=== PATIENT | female | born 1985 | race Two or more races ===

== ENCOUNTER 2020-11-19 13:39 | Outpatient (CLI) | payer OTHER | END 2020-11-19 15:35 | disposition home or self-care (01) | LOC: PRENATAL 13:39 | PROVIDERS: ATTEND Obstetrics & Gynecology Maternal & Fetal Medicine | DX: O35.0XX1 Maternal care for (suspected) central nervous system malformation in fetus, fetus 1 (principal); O35.3XX1 Maternal care for (suspected) damage to fetus from viral disease in mother, fetus 1; O98.512 Other viral diseases complicating pregnancy, second trimester; O09.512 Supervision of elderly primigravida, second trimester; Z36.89 Encounter for other specified antenatal screening; Z3A.24 24 weeks gestation of pregnancy ==

== ENCOUNTER 2022-03-09 09:50 | Emergency (ER) | payer OTHER ==
[~2022-03-09] VITALS: Ht 160 cm; Wt 72.6 kg
[2022-03-09] MEDS ORDERED: CAMILA0.35 MG (10:29)
== END 2022-03-09 11:38 | disposition home or self-care (01) ==
LOC: ER 09:50
DX: M94.0 Chondrocostal junction syndrome [Tietze] (principal)

== ENCOUNTER 2022-12-10 14:07 | Emergency (ER) | payer OTHER ==
[~2022-12-10] VITALS: Ht 160 cm; Wt 79.4 kg
[~2022-12-10 14:07] MED LIST: CAMILA0.35 MG
== END 2022-12-10 17:59 | disposition home or self-care (01) ==
LOC: ER 14:07
DX: G24.3 Spasmodic torticollis (principal)

== ENCOUNTER 2022-12-21 09:11 | Emergency (ER) | payer OTHER ==
[~2022-12-21] VITALS: Ht 160 cm; Wt 77.1 kg
== END 2022-12-21 12:30 | disposition home or self-care (01) ==
LOC: ER 09:11
DX: M43.6 Torticollis (principal)

== ENCOUNTER 2023-04-27 11:11 | Emergency (ER) | payer OTHER ==
[~2023-04-27] VITALS: Ht 160 cm; Wt 81.6 kg
[2023-04-27] MEDS ORDERED: GUAIFENESIN 200 MG/10 ML BLIST.PACK PO STA (12:26)
[2023-04-27] MEDS ORDERED: ACETAMINOPHEN 500 MG GEL..CAP PO STA (12:26)
[2023-04-27] MEDS ORDERED: DEXAMETHASONE SODIUM PHOSPHATE 4 MG/ML VIAL IM STA (12:26)
[2023-04-27 13:30] LABS: HEMOGLOBIN 13.4 g/dL (12.0-15.00); MEAN CELL VOLUME 87.4 fL (80.00-100.00); MEAN CORPUSCULAR HEMOGLOBIN 29.9 pg (27.00-32.0); MEAN CORPUSCULAR HGB CONC 34.2 g/dl (32.0-36.0); PLATELET COUNT 289 K/uL (150-450); RED BLOOD COUNT 4.47 M/uL (4.00-6.00); RED CELL DISTRIBUTION WIDTH 13.9 % (11.5-14.5)
[2023-04-27] MEDS ORDERED: CLARITIN10 M1 PO (14:42)
[2023-04-27] MEDS ORDERED: BENZONATATE200 M1 PO (14:43)
== END 2023-04-27 14:53 | disposition home or self-care (01) ==
LOC: ER 11:11
PROVIDERS: General Practice
DX: J06.9 Acute upper respiratory infection, unspecified (principal); Z20.822 Contact with and (suspected) exposure to COVID-19